=== PATIENT | male | born 1980 | race Caucasian/White ===

== ENCOUNTER → 2017-02-07 | Outpatient (CLI) | payer OTHER ==
[~2017-02-07] MED LIST: AMOXICILLIN; BENTYL20 MG PO; NASAL SPRAY; NEXIUM PO; VITAMIN D400 UNI2; [UNRECOGNIZED DRUG - REMARK]
--- NOTE | ~2017-02-07 | MR103 ---
[facility] A Service [facility] RADIOLOGY TEXT RESULTS PATIENT: KINJAL REYES LOCATION: [facility] : [birth year] UNIT #: [id number] AGE: [address]: Alicia Beltran APRN SEX: M ORDER DR: [id number] [address] [address] [id number] O MR#: [id number] Acc #: [id number] NAME: KINJAL REYES : 1980 SEX: M STUDY DATE/TIME: 02/07/2017 9:34 UNIT: [facility] ROOM: STUDY DESCRIPTION: MR Knee Wo Contrast Lt Attending Physician: Alicia Beltran A.P.R.N. Referring Physician: Alicia Beltran A.P.R.N. Ordering Physician: Alicia Beltran A.P.R.N. Primary Care Physician: Jhoan Canseco D.O. [facility] REPORT This report is preliminary unless electronic signature is present. EXAM Left knee MRI without contrast, 02/07/2017. HISTORY 36-year-old male with left knee pain and swelling for 3-4 weeks. No specific injury. No prior left knee surgery COMPARISON None TECHNIQUE Routine, unenhanced, multiplanar, multisequence, high-field MR imaging of the left knee was performed. FINDINGS The menisci are intact. Cruciate and collateral ligaments are intact. Extensor mechanism is intact. Moderate joint effusion. No loose intraarticular bodies. No significant popliteal cyst. There is a focal partially delaminating, partial thickness chondral fissure in the medial patellar facet. 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 Lateral compartment articular cartilage is intact. Medial compartment articular cartilage intact. Bone marrow signal is within expected limits. Visualized musculature is unremarkable. IMPRESSION 1. No evidence of a meniscus tear or acute ligament injury. 2. Focal partial thickness, partially delaminating chondral fissure [facility] A Service [facility] RADIOLOGY TEXT RESULTS PATIENT: KINJAL REYES LOCATION: [facility] : 80 UNIT #: [id number] AGE: [address]: Alicia Beltran APRN SEX: M ORDER DR: medial patellar facet. 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 3. Moderate joint effusion. No loose intraarticular bodies visualized. Dictated by... Andrea Cabezas M.D. THIS IS AN ELECTRONICALLY VERIFIED REPORT Andrea Cabezas M.D. at 02/10/2017 4:36 PM ABRAHAM/albino TD: 02/10/2017 14:04 JOB #: [id number] [facility] REPORT Page 1 of 1
== END | disposition home or self-care (01) ==
LOC: SMRI 08:46
DX: M25.562 Pain in left knee (principal); M94.262 Chondromalacia, left knee; M25.462 Effusion, left knee
CPT/HCPCS: 73721